=== PATIENT | female | born 1985 ===

== ENCOUNTER 2020-10-14 03:45 | Inpatient (IN) | payer OTHER ==
[2020-10-14] MEDS ORDERED: TERBUTALINE 1 MG/1 ML INJ SUB-Q PRN (05:26)
[2020-10-14] MEDS ORDERED: fentaNYL 100 MCG/2 ML INJ IV PRN (05:26)
[2020-10-14] MEDS ORDERED: OXYTOCIN 10 UNIT/1 ML INJ IM PRN (05:26)
[2020-10-14] MEDS ORDERED: CARBOPROST TROMETHAMINE 250 MCG/1 ML INJ IM PRN (05:26)
[2020-10-14] MEDS ORDERED: LIDOCAINE (2%) 20 MG/1 ML VIAL 20 ML MDV INFILTRATI ONE ×2 (05:26→08:42)
[2020-10-14] MEDS ORDERED: ePHEDrine SULFATE 50 MG/1 ML INJ IV PRN ×2 (05:26→08:59)
[2020-10-14] MEDS ORDERED: AMPICILLIN/NS 2 GM/100 ML 2 GM/100 ML BAG IV ONE (05:26)
[2020-10-14] MEDS ORDERED: NalbUPHINE 10 MG/1 ML INJ IV PRN (05:26)
[2020-10-14] MEDS ORDERED: METHYLERGONOVINE MALEATE 0.2 MG/ML VIAL IM PRN (05:26)
[2020-10-14] MEDS ORDERED: BUTORPHANOL 2 MG/1 ML INJ IV PRN ×2 (05:26)
[2020-10-14] MEDS ORDERED: LOPERAMIDE 2 MG CAP PO PRN ×2 (05:26→08:24)
[2020-10-14] MEDS ORDERED: ACETAMINOPHEN 325 MG TAB PO PRN ×2 (05:26→10:27)
[2020-10-14] MEDS ORDERED: miSOPROStol 200 MCG TAB PR PRN (05:26)
[2020-10-14] MEDS ORDERED: MINERAL OIL 30 ML ORAL LIQD PO PRN (05:26)
[2020-10-14] MEDS ORDERED: LACTATED RINGERS 1,000 ML IV SCH (05:30)
[2020-10-14 05:50] LABS: Hematocrit 36.4 % (30.3-42.9); Hemoglobin 12.2 gm/dl (10.1-14.3); Mean Corpuscular HGB Conc 34 % (30-34); Mean Corpuscular Volume 86 fl (79-97); Platelet Count 257 K/mm3 (140-440); Red Blood Count 4.25 M/mm3 (3.65-5.03); Red Cell Distribution Width 14.7 % (13.2-15.2)
[2020-10-14] MEDS ORDERED: OXYTOCIN DRIP 30 UNITS/500 ML BAG IV SCH ×2 (06:00)
--- NOTE | 2020-10-14 08:53 | History and Physical Report ---
History of Present Illness Date of examination: 10/14/20 Date of admission: 10/14/20 04:16 Chief complaint: Contractions History of present illness: 35 year old presented to L&D with contractions. Patient denied LOF or VB. Patient received care at [facility] and records are available. LMP 01/13/2020. EDC 10/19/2020. significant for the following: history of delivery x 2, obesity, elevated 1 hour sugar test (normal 3 hour OGTT), + GBS. labs are as follows: O+, antibody screen negative, HIV negative, rubella immune, RPR nonreactive, hepatitis B surface antigen negative, 1 hour sugar test 163 (normal 3 hour OGTT), gonorrhea negative, chlamydia negative, GBS positive. Past History Past Medical History: other (HPV, obesity, PCOS) Past Surgical History: other (colpo, LEEP) [employer] History: abnormal PAP smear. denies: chlamydia, gonorrhea, hepatitis B, hepatitis C, herpes, HIV, syphilis, trichomonas Family/Genetic History: diabetes, heart disease, hypertension, other (kidney disease) Social history: lives with family, full code. denies: smoking, alcohol abuse, p rescription drug abuse, IV drug use - Obstetrical History Expected Date of Delivery: 10/19/20 Actual Gestation: 39 Week(s) 2 Day(s) : 5 Para: 4 Hx # Term Pregnancies: 2 Number of Pregnancies: 2 Spontaneous Abortions: 0 Induced : 0 Number of Living Children: 2 Medications and Allergies Allergies Allergy/AdvReac Type Severity Reaction Status Date / Time PCN Allergy Hives Uncoded 12/12/15 09:39 Home Medications Medication Instructions Recorded Confirmed Last Taken Type Ibuprofen [Motrin 600 MG tab] 600 mg PO Q6H #50 tablet 12/22/15 Unknown Rx Active Meds: Active Medications Acetaminophen (Acetaminophen 325 Mg Tab) 650 mg PO Q4H PRN PRN Reason: Pain, Mild (1-3) Butorphanol Tartrate (Butorphanol 2 Mg/1 Ml Inj) 1 mg IV Q2H PRN PRN Reason: Pain, Moderate(4-6) LABOR PAIN Butorphanol Tartrate (Butorphanol 2 Mg/1 Ml Inj) 2 mg IV Q2H PRN PRN Reason: Pain , Severe (7-10) Last Admin: 10/14/20 05:58 Dose: 2 mg Documented by: Carboprost Tromethamine (Carboprost Tromethamine 250 Mcg/1 Ml Inj) 250 mcg IM ONCE PRN PRN Reason: Uterine Bleeding Ephedrine Sulfate (Ephedrine Sulfate 50 Mg/1 Ml Inj) 10 mg IV Q2M PRN PRN Reason: Hypotension Fentanyl (Fentanyl 100 Mcg/2 Ml Inj) 100 mcg IV Q2H PRN PRN Reason: Pain,Severe (7-10) LABOR PAIN Last Admin: 10/14/20 08:09 Dose: 100 mcg Documented by: Oxytocin/Sodium Chloride (Pitocin/Ns 30 Unit/500ml) 30 units in 500 mls @ 2 mls/hr IV TITR PAULETTE; Protocol Lactated Ringer's (Lactated Ringers) 1,000 mls @ 125 mls/hr IV DIRECT PAULETTE Last Admin: 10/14/20 06:05 Dose: 125 mls/hr Documented by: Oxytocin/Sodium Chloride (Pitocin/Ns 30 Unit/500ml) 30 units in 500 mls @ 40 mls/hr IV TITR PAULETTE; Protocol Vancomycin HCl (Vancomycin/Ns 1 Gm/250 Ml) 1 gm in 250 mls @ 167.007 mls/hr IV Q12H PAULETTE; Protocol Loperamide HCl (Loperamide 2 Mg Cap) 2 mg PO ONCE PRN PRN Reason: give with Hemabate Methylergonovine Maleate (Methylergonovine Maleate 0.2 Mg/Ml Vial) 0.2 mg IM ONCE PRN PRN Reason: Uterine Bleeding Mineral Oil (Mineral Oil 30 Ml Oral Liqd) 30 ml PO QHS PRN PRN Reason: Constipation Misoprostol (Misoprostol 200 Mcg Tab) 800 mcg PA ONCE PRN PRN Reason: Uterine Bleeding Nalbuphine HCl (Nalbuphine 10 Mg/1 Ml Inj) 10 mg IV Q2H PRN PRN Reason: Pain, Moderate (4-6) Oxytocin (Oxytocin 10 Unit/1 Ml Inj) 10 unit IM ONCE PRN PRN Reason: Uterine Bleeding Terbutaline Sulfate (Terbutaline 1 Mg/1 Ml Inj) 0.25 mg SUB-Q ONCE PRN PRN Reason: Hyperstimulation/Hypertonicity Review of Systems All systems: negative (contractions) - Vital Signs Vital signs: Vital Signs Pulse Pulse Ox 26 L 82 L 10/14/20 04:04 10/14/20 04:04 Temp Pulse Resp BP Pulse Ox 98.3 F 100 H 20 122/75 96 10/14/20 07:29 10/14/20 08:42 10/14/20 05:58 10/14/20 07:49 10/14/20 08:42 - Physical Exam Abdomen: Positive: normal appearance, soft. Negative: distention, tenderness, guarding, rigidity Genitourinary (Female): Positive: normal external genitalia, normal perenium. Negative: perineal/vulvar lesions Vagina: Positive: normal moisture Uterus: Positive: enlarged. Negative: tender Anus/Rectum: Positive: normal perianal skin Extremities: Positive: normal. Negative: tenderness, edema - Obstetrical FHR: category 2 Uterine Contraction Monitor Mode: External Cervical Dilatation: 9 Cervical Effacement Percentage: 100 (BBOW) station: -1 Uterine Contraction Pattern: Regular Uterine Contraction Intensity: Strong/Firm Results Result Diagrams: 10/14/20 05:00 All other labs normal. Assessment and Plan A: at 39 weeks, 2 days gestation. Active labor. GBS positive. PCN allergy. P: Admit. EFM. Vancomycin for GBS prophylaxis. Anticipate .
[2020-10-14] MEDS ORDERED: NALOXONE 2 MG/2 ML INJ IV PRN (08:59)
--- NOTE | 2020-10-14 08:59 | Anesthesia Consultation ---
Anesthesia Consult and Med Hx Date of service: 10/14/20 - Airway Anesthetic Teeth Evaluation: Good ROM Head & Neck: Adequate Mental/Hyoid Distance: Adequate Mallampati Class: Class II Intubation Access Assessment: Probably Good - Pulmonary Exam CTA: Yes - Cardiac Exam Cardiac Exam: RRR - Pre-Operative Health Status ASA Pre-Surgery Classification: ASA3 Proposed Anesthetic Plan: Epidural - Pulmonary Hx Asthma: No COPD: No Hx Pneumonia: No - Cardiovascular System Hx Hypertension: No - Central Nervous System Hx Seizures: No Hx Psychiatric Problems: No - Endocrine Hx Renal Disease: No Hx End Stage Renal Disease: No Hx Hypothyroidism: No Hx Hyperthyroidism: No - Hematic Hx Anemia: No Hx Sickle Cell Disease: No - Other Systems Hx Alcohol Use: No Hx Obesity: Yes
[2020-10-14] MEDS ORDERED: fentaNYL-BUPIV 2 MCG/ML-0.125% 200 MCG/100 ML BAG EPIDURAL SCH (09:00)
[2020-10-14] MEDS ORDERED: VANCOMYCIN/NS 1 GM/250 ML 1 GM/250 ML BAG IV SCH (09:00)
--- NOTE | 2020-10-14 09:21 | Progress Note ---
Labor Epidural - Labor Epidural Start Time: :06 Stop Time: : Performed by:: CEDRIC DIAZ Procedure: Patient is requesting epidural for labor pain. H&P, and labs reviewed. Procedure explained, questions answered, consent obtained. Patient in sitting position with blood pressure cuff and pulse ox on and working. Timeout performed immediately before start of procedure. Sterile chlorahexadine 0.5% prep/drape. 3 mL 1% lidocaine skin wheal at L[3]-L[4]. 18-gauge [employer] epidural needle advanced to [id number] with saline at 9 cm. Epidural catheter advanced to 15 cm, negative aspiration for blood and csf, negative test dose 3 ml 1.5% lidocaine with epinephrine. Epidural dexmedetomidine [30] mcg administered. Sterile steri-strips and tegaderm applied, followed by tape reinforcement. Patient tolerated procedure well. Blaise JOAQUIN
[2020-10-14] MEDS ORDERED: MAGNESIUM HYDROXIDE (MOM) ORAL LIQD UDC PO PRN (10:27)
[2020-10-14] MEDS ORDERED: HYDROcodone/ACETAMINOPHEN 5-325 MG TAB PO PRN (10:27)
[2020-10-14] MEDS ORDERED: LANOLIN/ZINC/DIMETHICONE (LANSINOH) 7 GM TP PRN (10:27)
[2020-10-14] MEDS ORDERED: WITCH HAZEL/ GLYCERIN PAD TP PRN (10:27)
--- NOTE | 2020-10-14 10:38 | Procedure Note ---
OB Delivery Note - Delivery Date of Delivery: 10/14/20 Surgeon: AUSTIN LIMON Estimated blood loss: other (150 cc) - Vaginal Delivery presentation: vertex Delivery position: OA Intrapartum events: meconium Delivery induction: none Delivery monitor: external FHT, external uterine Route of delivery: Delivery placenta: spontaneous Delivery cord: 3 umbilical vessels Episiotomy: none Delivery laceration: none Anesthesia: epidural Delivery comments: SROM at 09:40 with thin meconium stained amniotic fluid. NICU called to delivery. at 09:44 of liveborn female infant weighing 8 lb. 7 oz. over intact perineum with apgars of 8/9. Epidural anesthesia. Tight nuchal cord times 1. was atraumatic. Baby was placed skin to skin with mom immediately after delivery. Spontaneous cry and respirations. Baby bulb suctioned and dried. Baby voided just after delivery. 3 vessel cord double clamped and cut and baby taken to radiant warmer for further suctioning. Cord blood obtained. Spontaneous delivery of intact placenta and membranes at 09:49. EBL 150 cc. Pitocin to IV fluids after delivery of placenta. Fundus firm and midline at 2 FB below umbilic us. No lacerations noted. Vaginal sweep negative. Sponge count correct. Mother and baby stable.
[2020-10-14 11:14] LABS: Alanine Aminotransferase 7 units/L (7-56); Albumin 2.9 g/dL (3.9-5); Blood Urea Nitrogen 13 mg/dL (7-17); Calcium 8.4 mg/dL (8.4-10.2); Hemolysis Index 4
[2020-10-14 11:15] LABS: BUN/Creatinine Ratio 26
[2020-10-14] MEDS: IBUPROFEN 600 MG TAB PO SCH ×3 (16:20→23:34)
[2020-10-14] MEDS: DOCUSATE SODIUM 100 MG CAP PO SCH (21:37)
[2020-10-15 01:16] LABS: Hemoglobin 10.9 gm/dl (10.1-14.3)
[2020-10-15] MEDS: IBUPROFEN 600 MG TAB PO SCH ×3 (05:39→18:02)
--- NOTE | 2020-10-15 08:47 | Discharge Summary ---
Providers - Providers Date of Admission: 10/14/20 04:16 Date of discharge: 10/15/20 Attending physician: TERE BERNAL JR, MD Primary care physician: TERE BERNAL JR, MD Hospitalization Reason for admission: active labor Delivery: Episiotomy: none Laceration: none Discharge diagnosis: IUP at term delivered baby: female Hospital course: Patient admitted in active labor and underwent an uncomplicated spontaneous vaginal delivery. Patient met goals and was discharged in good condition of day 2. Condition at discharge: Good Disposition: 01 HOME / SELF CARE / HOMELESS - Discharge Diagnoses (1) Status post vaginal delivery Status: Acute Plan - Provider Discharge Summary Activity: routine, no sex for 6 weeks Diet: routine Instructions: routine Additional instructions: [] Smoking cessation referral if applicable(refer to patient education folder for contact #) [] Refer to [facility]'s [facility] Booklet Call your doctor immediately for: * Fever > 100.5 * Heavy vaginal bleeding ( >1 pad per hour) * Severe persistent headache * Shortness of breath * Reddened, hot, painful area to leg or breast * Drainage or odor from incision. * Keep incision clean and dry at all times and follow doctor's instructions regarding bathing/showering - Follow up plan Follow up: TERE BERNAL JR, MD [Primary Care Provider] - 6 Weeks
--- NOTE | 2020-10-15 08:47 | Progress Note ---
Assessment and Plan - Patient Problems (1) Status post vaginal delivery Current Visit: Yes Status: Acute Plan to address problem: Patient meeting goals. Infant also doing well in the room. --Anticipate discharge in 24 to 48 hours. Subjective - Subjective Date of service: 10/15/20 Principal diagnosis: PPD1 Interval history: Patient doing well and meeting goals. Baby doing well in the room. Breast and bottlefeeding. Patient reports: appetite normal, voiding normally, pain well controlled, flatus [place]: doing well Objective - Vital Signs Latest vital signs: Vital Signs Temp Pulse Resp BP BP Pulse Ox Pulse Ox 10/15/20 05:39 20 10/15/20 00:27 98.1 F 80 18 125/71 96 10/14/20 23:34 20 10/14/20 21:56 97.9 F 85 18 109/62 96 10/14/20 20:00 98 10/14/20 16:21 98.5 F 96 H 18 102/69 97 10/14/20 14:34 104 H 98 10/14/20 12:35 98.7 F 90 18 101/57 99 99 10/14/20 11:17 67 97 10/14/20 11:12 67 106/61 96 10/14/20 11:07 78 98 10/14/20 11:02 73 95 10/14/20 10:57 81 98 10/14/20 10:52 76 98 10/14/20 10:48 76 94 10/14/20 10:47 90 96 10/14/20 10:42 78 97 10/14/20 10:41 70 112/60 10/14/20 10:37 76 98 10/14/20 10:36 75 110/58 10/14/20 10:32 72 98 10/14/20 10:31 75 110/60 10/14/20 10:27 75 97 10/14/20 10:26 71 114/57 10/14/20 10:22 72 98 10/14/20 10:17 81 98 10/14/20 10:16 77 101/59 10/14/20 10:12 80 99 10/14/20 10:11 83 107/58 10/14/20 10:07 77 98 10/14/20 10:06 77 106/56 10/14/20 10:02 80 97 10/14/20 10:01 98.4 F 86 108/58 10/14/20 09:57 89 97 10/14/20 09:56 83 107/57 10/14/20 09:52 104 H 98 10/14/20 09:50 85 110/55 10/14/20 09:47 95 H 114/62 98 10/14/20 09:44 139 H 130/63 10/14/20 09:42 105 H 125/80 98 10/14/20 09:37 106 H 96 10/14/20 09:35 86 116/65 10/14/20 09:32 93 H 117/73 95 10/14/20 09:29 85 118/65 10/14/20 09:27 86 95 10/14/20 09:26 74 118/69 10/14/20 09:23 88 113/67 10/14/20 09:22 90 96 10/14/20 09:20 82 114/72 10/14/20 09:17 88 115/72 98 10/14/20 09:14 104 H 133/75 93 10/14/20 09:12 108 H 95 10/14/20 09:11 101 H 138/82 10/14/20 09:08 92 H 139/83 10/14/20 09:07 98 H 96 10/14/20 09:05 103 H 130/85 10/14/20 09:03 94 H 93 10/14/20 09:02 96 H 97 10/14/20 09:01 81 120/64 10/14/20 08:57 108 H 97 10/14/20 08:52 83 95 10/14/20 08:51 84 93 10/14/20 08:47 82 96 Intake and Output 10/14/20 10/15/20 10/15/20 23:59 07:59 15:59 Intake Total 720 360 Balance 720 360 Intake: Oral 240 360 Intake, Free Water 480 Other: Total, Intake Amount 120 120 # Voids Void 1 1 - Exam Abdomen: Present: normal appearance, soft, normal bowel sounds Uterus: Present: firm, fundal height below umbilicus Extremities: Present: normal - Labs Labs: Abnormal lab results 10/14/20 Range/Units 10:19 Sodium 136 L (137-145) mmol/L Carbon Dioxide 18 L (22-30) mmol/L Creatinine 0.5 L (0.6-1.2) mg/dL Glucose 152 H (65-100) mg/dL Total Protein 6.1 L (6.3-8.2) g/dL Albumin 2.9 L (3.9-5) g/dL
[2020-10-15] MEDS: DOCUSATE SODIUM 100 MG CAP PO SCH ×2 (11:33→22:28)
[2020-10-16] MEDS: IBUPROFEN 600 MG TAB PO SCH ×3 (00:20→11:42)
--- NOTE | 2020-10-16 09:09 | Post Anesthesia Evaluation ---
- Post Anesthesia Evaluation Patient Participated: Yes Airway Patent: Yes Stable Respiratory Function: Yes Nausea/Vomiting: No Temp > 96.8F: Yes Pain Manageable: Yes Adequeate Hydration: Yes Anesthesia Complications: No Block Receding Appropriately: Yes Patient on Ventilator: No
[2020-10-16] MEDS: DOCUSATE SODIUM 100 MG CAP PO SCH (11:43)
[2020-10-16 16:49] VITALS: BP 137/87
== END 2020-10-16 17:15 | disposition home or self-care (01) | DRG 807 ==
LOC: TRG 03:45 → APU 03:46 → TRG 04:16 → OBSVTOIN 04:16 → LD 04:16 → OB 14:16
PROVIDERS: ADMIT Obstetrics & Gynecology; ATTEND Obstetrics & Gynecology
PROC: 10E0XZZ Delivery of Products of Conception, External Approach (ICD-10-PCS; principal; 2020-10-14)
PROC: 3E0R3BZ Introduction of Anesthetic Agent into Spinal Canal, Percutaneous Approach (ICD-10-PCS; 2020-10-14)
PROC: 00HU33Z Insertion of Infusion Device into Spinal Canal, Percutaneous Approach (ICD-10-PCS; 2020-10-14)
DX: O99.824 Streptococcus B carrier state complicating childbirth (principal); Z37.0 Single live birth; Z3A.39 39 weeks gestation of pregnancy; Z20.822 Contact with and (suspected) exposure to COVID-19; O77.0 Labor and delivery complicated by meconium in amniotic fluid
CPT/HCPCS: 36415; 59025; 80053; 85014; 85018; 85027; 86592; 86850; 86900; 86901; 96360; 96361; 96365; 96366; 96374; 96375; G0378; J0290; J0595; J2590; J3010; J3370; J7120; U0003